=== PATIENT | female | born 1960 | race Hispanic/Latino ===

== ENCOUNTER 2017-10-02 15:43 | Emergency (ER) | payer MEDICAID ==
[2017-10-02 16:11] VITALS: RESP 18; BMI 25.5
[2017-10-02] MEDS ORDERED: Multivitamin (MVI) 10 ML, Thiamine 100 MG, Folic Acid 1 MG in Sodium Chloride 0.9% 1,00... IV ONE (16:23)
[2017-10-02 16:42] LABS: BASO # 0.02 K/mm3 (0.0-2.0); BASO % 0.4 % (0.0-3.0); EOS # 0.1 (0.0-0.7); EOS % 0.9 % (1.5-5.0); GRAN # 2.09 (1.4-6.5); HEMATOCRIT 44.9 % (36.0-48.0); MEAN CELL VOLUME 98.7 fl (80.0-105.0); MEAN CORPUSCULAR HEMOGLOBIN 34.9 pg (25.0-35.0); MEAN CORPUSCULAR HGB CONC 35.4 g/dl (31.0-37.0); MEAN PLATELET VOLUME 10.1 fl (7.0-11.0); MONO # 0.5 (0.1-0.6); MONO % 8.7 % (1.0-6.0); RED CELL DISTRIBUTION WIDTH 12.9 % (11.5-14.5); WHITE BLOOD COUNT 5.6 10^3/ul (4.5-11.0)
--- NOTE | 2017-10-02 16:43 | ED PDOC ---
Arrival/HPI - General Chief Complaint: Psychiatric Evaluation Time Seen by Provider: 10/02/17 16:23 Historian: Patient, EMS - History of Present Illness Narrative History of Present Illness (Text): 10/02/17 16:31 Per patient/EMS, pt has been feeling very depressed over the last few weeks and has been nearly drinking on a daily basis, ~ 1 pint of vodka; pt last drink was prior to ED arrival; pt states someone called the EMS on her and they brought her to the ED for further eval; pt had made statements to her friends/EMS crew in regards to wanting to harm herself, but without concrete plans; pt states she has no homicidal ideations, no hallucinations - visual/tactile/auditory; pt states no medical complaints; pt states she is "heart broken" and has been attempting to contact the hotline at [facility] for assistance but no one has responded back to her; pt is extremely sad about that; pt states no fever/chills/sweats/cp/sob/palpitations, no abd pain, no n/v, no numbness/ tingling, no urinary/bowel changes, no fall/trauma/sick contact, no travel Per pt's cousin (Luisana) whos at bedside currently, verify pt's statements that she wants to hurt herself by possibly OD on pills; pt was making these statements since yesterday 10/02/17 16:48 Time/Duration: < week Symptom Onset: Gradual Symptom Course: Worsening Severity Level: Severe Past Medical History - Provider Review Nursing Documentation Reviewed: Yes - Travel History Have you recently traveled outside [place] w/in the past 3 mons?: No - Infectious Disease Hx of Infectious Diseases: None - Tetanus Immunization Tetanus Immunization: Unknown - Cardiac Hx Cardiac Disorders: No Hx Hypertension: Yes - Pulmonary Hx Respiratory Disorders: No - Neurological Hx Neurological Disorder: No - HEENT Hx HEENT Disorder: No - Renal Hx Renal Disorder: No Hx Kidney Stones: No - Endocrine/Metabolic Hx Diabetes Mellitus Type 2: Yes - Hematological/Oncological Hx Blood Disorders: No - Integumentary Hx Dermatological Disorder: No - Musculoskeletal/Rheumatological Hx Musculoskeletal Disorders: No - Gastrointestinal Hx Gastrointestinal Disorders: No - Psychiatric Hx Anxiety: Yes Hx Depression: Yes Hx Physical Abuse: No Hx Substance Use: Yes (alcohol abuse) - Surgical History Hx Tubal Ligation: Yes - Anesthesia Hx Anesthesia: No Hx Anesthesia Reactions: No Hx Malignant Hyperthermia: No - Suicidal Assessment Suicidal Thoughts: Yes Plan: No Suicide Risk Precautions: Suicide Precautions Feels Threatened In Home Enviroment: No Family/Social History - Physician Review Nursing Documentation Reviewed: Yes Family/Social History: Unknown Family HX Smoking Status: Never Smoked Hx Alcohol Use: Yes Frequency of alcohol use: Daily Hx Substance Use: No Hx Substance Use Treatment: No Allergies/Home Meds Allergies/Adverse Reactions: Allergies No Known Allergies Allergy (Verified 04/02/13 17:45) Home Medications: Home Meds Medication Instructions Recorded Confirmed Venlafaxine [Effexor XR] 75 mg PO DAILY 10/02/17 10/02/17 clonazePAM [clonAZEPAM] 0.5 mg PO DAILY 10/02/17 10/02/17 Review of Systems - Review of Systems Constitutional: absent: Weight Change, Fevers Eyes: Normal ENT: Normal Respiratory: Normal Cardiovascular: Normal Gastrointestinal: Normal Genitourinary Female: Normal Musculoskeletal: Normal Skin: Normal Neurological: Normal Endocrine: Normal Hemo/Lymphatic: Normal Psychiatric: Anxiety, Depression, Suicidal Ideation Physical Exam Vital Signs Reviewed: Yes Vital Signs Pulse Resp BP Pulse Ox 10/02/17 17:44 89 18 137/70 98 10/02/17 15:57 82 18 127/91 H 99 Temperature: Afebrile Blood Pressure: Other (elevated DBP) Pulse: Regular Respiratory Rate: Normal Appearance: Positive for: Well-Appearing, Non-Toxic, Other (+ etoh on breath, alert/awake, slurr speech (likely due to intoxication); GCS = 15, oriented x 2 ( not to date/time); resting in bed, intermittently crying) Pain Distress: None Mental Status: Positive for: other (intermittently crying/in tears) - Systems Exam Head: Present: Atraumatic, Normocephalic Pupils: Present: PERRL, Other (visual field intact b/l, no nystagmus, no photophobia) Extroacular Muscles: Present: EOMI Conjunctiva: Present: Normal Mouth: Present: Dry, Other (intact dentitions, no drooling/stridor, no dysphonia ) Pharnyx: Present: Normal. No: ERYTHEMA, EXUDATE, Muffled/Hoarse Voice Nose (External): Present: Atraumatic Neck: Present: Normal Range of Motion, Trachea Midline. No: MIDLINE TENDERNESS Respiratory/Chest: Present: Clear to Auscultation, Good Air Exchange. No: Respiratory Distress, Accessory Muscle Use Cardiovascular: Present: Regular Rate and Rhythm, Normal S1, S2. No: Murmurs Abdomen: Present: Normal Bowel Sounds, Other (well nourished female, no focal tenderness, no masses/rebound/guarding/rigidity; no irvin's sign, no mcburnye' s point tenderness). No: Tenderness, Distention, Peritoneal Signs Back: Present: Normal Inspection, Midline Tenderness Upper Extremity: Present: Normal Inspection, Normal ROM, NORMAL PULSES, Neurovascularly Intact, Capillary Refill < 2s, Other (strength 5/5 grossly intact in all limbs). No: Cyanosis, Edema Lower Extremity: Present: Normal Inspection, NORMAL PULSES, Normal ROM, Neurovascularly Intact, Capillary Refill < 2 s, Other (+ ambulatory, strength 5/ 5 grossly intact in all limbs). No: Edema, Vidya's Sign Neurological: Present: GCS=15, CN II-XII Intact, Normal Sensory Function Skin: Present: Warm, Dry, Normal Color, Other (no lesions/ulcerations noted). No: Rashes Psychiatric: Present: Alert, Depressed Mood (balbuena; intermittently crying) Medical Decision Making ED Course and Treatment: 10/02/17 17:01 impression: alcohol intoxication/abuse, + depression/suicidal thoughts/ statements, concern for DT/dehydration/other toxic ingestions; will continue to monitor i have consider all the differential diagnosis regarding pt's chief medical complaints/clinical findings, including but are not limited to: SI/depression, alcohol abuse, r/o DT; possible dehydration; infection a/p: alcohol intoxication/depression/SI - labs - iv - xray - ekg - ua - utox - observe - supportive care 10/02/17 18:01 pt's cousin is at bedside (Luisana); pt is currently cooperative and is agreeable with staying in the ED for further eval given pt's elevated ETOH level, likely will not be sober until ~ 11pm-12am later tonight; pt will be awaiting for soberity and medical re-evaluation for psych eval/PES evaluation after pt is deemed sober pt's family are made aware of pt's lab diagnostics pt is awaiting soberity/medical clearance/psych evaluation/assessment; pt can be disposition accordingly Reassessment Condition: Improving,but remains with symptoms - Lab Interpretations Lab Results: 10/02/17 16:05 10/02/17 16:05 Lab Results 10/02/17 16:05: Alcohol, Quantitative 315 H* 10/02/17 16:05: Salicylates < 1 L, Acetaminophen < 10.0 L 10/02/17 16:05: Sodium 147, Potassium 3.1 L, Chloride 102, Carbon Dioxide 26, Anion Gap 22 H, BUN 6 L, Creatinine 0.5 L, Est GFR ( Amer) > 60, Est GFR (Non-Af Amer) > 60, Random Glucose 119 H, Calcium 9.5, Total Bilirubin 0.3, AST 99 H, ALT 107 H, Alkaline Phosphatase 139 H, Total Protein 7.4, Albumin 4.7, Globulin 2.7, Albumin/Globulin Ratio 1.7 10/02/17 16:05: WBC 5.6, RBC 4.55, Hgb 15.9, Hct 44.9, MCV 98.7, MCH 34.9, MCHC 35.4, RDW 12.9, Plt Count 191, MPV 10.1, Gran % 37.0 L, Lymph % (Auto) 53.0 H, [place] % (Auto) 8.7 H, Eos % (Auto) 0.9 L, Baso % (Auto) 0.4, Gran # 2.09, Lymph # 3.0, [place] # 0.5, Eos # 0.1, Baso # 0.02 elevated ETOH, decr K I have reviewed the lab results: Yes Interpretation: Abnormal lab values (decr K, elevated ETOH; mildly elevated LFTs ) - RAD Interpretation Radiology Orders: 10/02/17 16:24 CHEST PORTABLE [RAD] Stat NAD, as read by me Dental Technologist: ED Physician - EKG Interpretation EKG Interpretation (Text): 10/02/17 17:15 NSR at 80 bpm, normal axis, no ectopy, no st-t changes, BORDERLINE EKG; no old ekg to compare with 10/02/17 17:16 Interpreted by ED Physician: Yes Type: 12 lead EKG Comparison: No previous EKG avail. - Medication Orders Current Medication Orders: Multivitamins/Vitamin C 10 ml/Thiamine HCl 100 mg/ Folic Acid 1 mg/ Sodium Chloride 1,011.2 mls @ 100 mls/hr IV ONCE ONE Stop: 10/03/17 02:29 Last Admin: 10/02/17 17:00 Dose: 100 mls/hr eMAR Start Stop Document 10/02/17 17:00 MS (Rec: 10/02/17 17:03 MS [id number]) Intravenous Solution Start Date 10/02/17 Start Time 17:03 Discontinued Medications Chlordiazepoxide (Librium) 25 mg PO STAT STA Stop: 10/02/17 16:45 Last Admin: 10/02/17 16:56 Dose: 25 mg Lorazepam (Ativan) 2 mg IVP ONCE ONE PRN Reason: Protocol Stop: 10/02/17 17:40 Last Admin: 10/02/17 17:44 Dose: 2 mg IVP Administration Document 10/02/17 17:44 EWO (Rec: 10/02/17 17:44 [id number]) Charges for Administration # of IVP Administrations 1 Oxycodone/Acetaminophen (Percocet 5/325 Mg Tab) 1 tab PO STAT STA Stop: 10/02/17 17:39 Last Admin: 10/02/17 17:43 Dose: 1 tab MAR Pain Assessment Document 10/02/17 17:43 EWO (Rec: 10/02/17 17:44 [id number]) Pain Reassessment Is this a pain reassessment? Yes Sleep Is patient sleeping during reassessment? No Presence of Pain Presence of Pain Yes Pain Scale Used Pain Scale Used Numeric Potassium Chloride (K-Dur 20 Meq Er Tab) 20 meq PO STAT STA Stop: 10/02/17 17:18 Last Admin: 10/02/17 17:37 Dose: 20 meq Disposition/Present on Arrival - Present on Arrival Any Indicators Present on Arrival: No History of DVT/PE: No History of Uncontrolled Diabetes: No Urinary Catheter: No History of Decub. Ulcer: No History Surgical Site Infection Following: None - Disposition Have Diagnosis and Disposition been Completed?: Yes Diagnosis: Alcohol intoxication, Alcohol dependence, Depression with suicidal ideation, Dehydration, Hypokalemia Disposition Time: 19:03 Patient Plan: Transfer To (DR SANTACRUZ, overnight attending, pt is awaiting soberity, medical re-eval, psych evaluation; pt can be dispositioned accordingly ) Patient Problems: Current Active Problems Problem Status Onset Alcohol intoxication Acute Alcohol dependence Acute Depression with suicidal ideation Acute Dehydration Acute Hypokalemia Acute Condition: STABLE Referrals: Tammy Whitehead DO [Primary Care Provider] - Follow up with primary Forms: [employer] (Arabic)
[2017-10-02 17:00] LABS: ALB/GLOB RATIO 1.7 (1.1-1.8); ALKALINE PHOSPHATASE 139 U/L (38-126); ALT/SGPT 107 U/L (7-56); AST/SGOT 99 U/L (14-36); BILIRUBIN,TOTAL 0.3 mg/dL (0.2-1.3); BLOOD UREA NITROGEN 6 mg/dL (7-21); CALCIUM 9.5 mg/dL (8.4-10.5); CARBON DIOXIDE 26 mmol/L (21-33); CHLORIDE 102 mmol/L (98-107); GFR AFRICAN-AMERICAN > 60; GLUCOSE,RANDOM 119 mg/dL (70-110); POTASSIUM 3.1 mmol/L (3.6-5.0); SODIUM 147 mmol/L (132-148); TOTAL PROTEIN 7.4 g/dL (5.8-8.3)
[2017-10-02] MEDS ORDERED: Potassium Chloride 20 mEq ER Tab PO STA (17:17)
[2017-10-02] MEDS ORDERED: Oxycodone/Acetaminophen 5/325 mg Tab PO STA (17:38)
--- NOTE | 2017-10-02 18:09 | RAD ---
HISTORY: for psych clearance COMPARISON: 09/11/2015. FINDINGS: LUNGS: No active pulmonary disease. PLEURA: No significant pleural effusion identified, no pneumothorax apparent. CARDIOVASCULAR: No radiographic findings to suggest acute or significant cardiovascular disease. OSSEOUS STRUCTURES: No significant abnormalities. VISUALIZED UPPER ABDOMEN: Normal. OTHER FINDINGS: None. IMPRESSION: No active disease. No significant interval change compared to the prior examination(s).
[2017-10-02 18:43] VITALS: BP 137/70; O2SAT 98
--- NOTE | 2017-10-02 21:25 | ED PDOC ---
Physical Exam Vital Signs Reviewed: Yes Vital Signs Pulse Resp BP Pulse Ox 10/02/17 21:43 88 18 98 10/02/17 17:44 89 18 137/70 98 10/02/17 15:57 82 18 127/91 H 99 Temperature: Afebrile Blood Pressure: Hypertensive Pulse: Regular Respiratory Rate: Normal Appearance: Positive for: Well-Appearing, Non-Toxic, Comfortable Pain Distress: None Mental Status: Positive for: Alert and Oriented X 3 Medical Decision Making ED Course and Treatment: 10/02/17 19:00: Patient endorsed to me by Dr. Mabry. Pending PES evaluation. 10/02/17 21:23: Patient was evaluated by PES worker. Patient is cleared for discharge. 10/02/17 21:42: Patient is awake, alert, and oriented x3. The patient has been observed for 6 hours. Patient has steady gait and is requesting to be discharged. - Lab Interpretations Lab Results: 10/02/17 16:05 10/02/17 16:05 Lab Results 10/02/17 16:05: Alcohol, Quantitative 315 H* 10/02/17 16:05: Salicylates < 1 L, Acetaminophen < 10.0 L 10/02/17 16:05: Sodium 147, Potassium 3.1 L, Chloride 102, Carbon Dioxide 26, Anion Gap 22 H, BUN 6 L, Creatinine 0.5 L, Est GFR ( Amer) > 60, Est GFR (Non-Af Amer) > 60, Random Glucose 119 H, Calcium 9.5, Total Bilirubin 0.3, AST 99 H, ALT 107 H, Alkaline Phosphatase 139 H, Total Protein 7.4, Albumin 4.7, Globulin 2.7, Albumin/Globulin Ratio 1.7 10/02/17 16:05: WBC 5.6, RBC 4.55, Hgb 15.9, Hct 44.9, MCV 98.7, MCH 34.9, MCHC 35.4, RDW 12.9, Plt Count 191, MPV 10.1, Gran % 37.0 L, Lymph % (Auto) 53.0 H, [place] % (Auto) 8.7 H, Eos % (Auto) 0.9 L, Baso % (Auto) 0.4, Gran # 2.09, Lymph # 3.0, [place] # 0.5, Eos # 0.1, Baso # 0.02 - RAD Interpretation Radiology Orders: 10/02/17 16:24 CHEST PORTABLE [RAD] Stat - Medication Orders Current Medication Orders: Discontinued Medications Chlordiazepoxide (Librium) 25 mg PO STAT STA Stop: 10/02/17 16:45 Last Admin: 10/02/17 16:56 Dose: 25 mg Multivitamins/Vitamin C 10 ml/Thiamine HCl 100 mg/ Folic Acid 1 mg/ Sodium Chloride 1,011.2 mls @ 100 mls/hr IV ONCE ONE Stop: 10/03/17 02:29 Last Admin: 10/02/17 17:00 Dose: 100 mls/hr eMAR Start Stop Document 10/02/17 17:00 MS (Rec: 10/02/17 17:03 MS [id number]) Intravenous Solution Start Date 10/02/17 Start Time 17:03 Lorazepam (Ativan) 2 mg IVP ONCE ONE PRN Reason: Protocol Stop: 10/02/17 17:40 Last Admin: 10/02/17 17:44 Dose: 2 mg IVP Administration Document 10/02/17 17:44 EWO (Rec: 10/02/17 17:44 [id number] Charges for Administration # of IVP Administrations 1 Oxycodone/Acetaminophen (Percocet 5/325 Mg Tab) 1 tab PO STAT STA Stop: 10/02/17 17:39 Last Admin: 10/02/17 17:43 Dose: 1 tab MAR Pain Assessment Document 10/02/17 17:43 EWO (Rec: 10/02/17 17:44 E[id number]) Pain Reassessment Is this a pain reassessment? Yes Sleep Is patient sleeping during reassessment? No Presence of Pain Presence of Pain Yes Pain Scale Used Pain Scale Used Numeric Potassium Chloride (K-Dur 20 Meq Er Tab) 20 meq PO STAT STA Stop: 10/02/17 17:18 Last Admin: 10/02/17 17:37 Dose: 20 meq - Scribe Statement The provider has reviewed the documentation as recorded by the Scribe Nandini Jeffers Provider Scribe Attestation: All medical record entries made by the Scribe were at my direction and personally dictated by me. I have reviewed the chart and agree that the record accurately reflects my personal performance of the history, physical exam, medical decision making, and the department course for this patient. I have also personally directed, reviewed, and agree with the discharge instructions and disposition. Disposition/Present on Arrival - Present on Arrival Any Indicators Present on Arrival: No History of DVT/PE: No History of Uncontrolled Diabetes: No Urinary Catheter: No History of Decub. Ulcer: No History Surgical Site Infection Following: None - Disposition Have Diagnosis and Disposition been Completed?: Yes Diagnosis: Alcohol intoxication, Alcohol dependence, Depression with suicidal ideation, Dehydration, Hypokalemia Disposition: HOME/ ROUTINE Disposition Time: 12:00 Condition: STABLE Discharge Instructions (ExitCare): Depression (DC), Alcohol Intoxication (ED) Additional Instructions: please follow up as insttructed by general warehouse worker. return to er with worsening symptoms or concerns. Referrals: Alcoholics Anonymous [Outside] - Follow up with primary Litigation Services Manager Service [Outside] - Follow up with primary [facility] [Outside] - Follow up with primary Tammy Whitehead DO [Primary Care Provider] - Follow up with primary Forms: [employer] (Bangladeshi)
[2017-10-02 21:53] VITALS: PULSE 88
--- NOTE | 2017-10-03 09:56 | CARD ---
APPROVED REPORT EKG Measurement Heart [id number] <Conclusion> Normal sinus rhythm Rightward axis Mild NSSTW changes and mildly prolonged QTc.
== END 2017-10-02 21:48 | disposition home or self-care (01) ==
LOC: ED 15:43
DX: F10.229 Alcohol dependence with intoxication, unspecified (principal); Y90.8 Blood alcohol level of 240 mg/100 ml or more; F32.9 Major depressive disorder, single episode, unspecified; R45.851 Suicidal ideations; E87.6 Hypokalemia; E86.0 Dehydration; E11.9 Type 2 diabetes mellitus without complications; I10 Essential (primary) hypertension
CPT/HCPCS: 71010; 80053; 80320; 80329; 85025; 93005; 96374; 99285; J2060; J3411; J7040

== ENCOUNTER 2018-04-07 19:28 | Emergency (ER) | payer MEDICAID ==
[2018-04-07 19:39] VITALS: BMI 25.7
--- NOTE | 2018-04-07 19:39 | ED PDOC ---
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 Patient stated as she was crossing the street, she slipped and fell down. Denies knee pain, denies hip pain, denies back pain. Denies head injury, LOC, weakness, paresthesias, syncope, or dizziness. Time/Duration: Other (see hpi) Context: Home Past Medical History - Provider Review Nursing Documentation Reviewed: Yes - Infectious Disease Hx of Infectious Diseases: None - Tetanus Immunization Tetanus Immunization: Unknown - Cardiac Hx Cardiac Disorders: No Hx Hypertension: Yes - Pulmonary Hx Tuberculosis: No - Neurological HX Cerebrovascular Accident: No Hx Seizures: No - HEENT Hx HEENT Disorder: No - Renal Hx Renal Disorder: No Hx Kidney Stones: No - Endocrine/Metabolic Hx Diabetes Mellitus Type 2: Yes - Hematological/Oncological Hx Cancer: No - Integumentary Hx Dermatological Disorder: No - Musculoskeletal/Rheumatological Hx Musculoskeletal Disorders: No - Gastrointestinal Hx Gastrointestinal Disorders: No - Genitourinary/Gynecological Hx Sexually Transmitted Diseases: No - Psychiatric Hx Depression: No Hx Substance Use: No - Surgical History Hx Tubal Ligation: Yes - Anesthesia Hx Anesthesia: No Hx Anesthesia Reactions: No Hx Malignant Hyperthermia: No - Suicidal Assessment Feels Threatened In Home Enviroment: No Family/Social History - Physician Review Nursing Documentation Reviewed: Yes Family/Social History: Other (noncontributory) Smoking Status: Never Smoked Hx Alcohol Use: Yes Hx Substance Use: No Hx Substance Use Treatment: No Allergies/Home Meds Allergies/Adverse Reactions: Allergies No Known Allergies Allergy (Verified 04/07/18 19:37) Home Medications: Home Meds Medication Instructions Recorded Confirmed clonazePAM [clonAZEPAM] 0.5 mg PO BID 10/02/17 04/07/18 Gabapentin [Neurontin] 300 mg PO TID 04/07/18 04/07/18 Lisinopril [Zestril] 40 mg PO DAILY 04/07/18 04/07/18 Review of Systems - Review of Systems Constitutional: Normal. absent: Fatigue, Weight Change, Fevers Eyes: Normal ENT: Normal Respiratory: Normal. absent: SOB, Cough, Sputum, Wheezing Cardiovascular: Normal. absent: Chest Pain, Palpitations Gastrointestinal: Normal. absent: Abdominal Pain, Nausea, Vomiting Genitourinary Female: Normal Musculoskeletal: Other (right foot/ankle pain) Skin: Normal Neurological: Normal. absent: Headache, Dizziness, Focal Weakness, Gait Changes , Speech Changes, Facial Droop, Disequilibrium Endocrine: Normal Hemo/Lymphatic: Normal Psychiatric: Normal Physical Exam Vital Signs Temp Pulse Resp BP Pulse Ox 04/07/18 19:39 98.7 F 89 17 161/96 H 100 Temperature: Afebrile Blood Pressure: Normal Pulse: Regular Respiratory Rate: Normal Appearance: Positive for: Well-Appearing, Non-Toxic, Comfortable Pain Distress: None Mental Status: Positive for: Alert and Oriented X 3 - Systems Exam Head: Present: Atraumatic, Normocephalic Pupils: Present: PERRL Extroacular Muscles: Present: EOMI Conjunctiva: Present: Normal Mouth: Present: Moist Mucous Membranes Neck: Present: Normal Range of Motion Respiratory/Chest: Present: Clear to Auscultation, Good Air Exchange. No: Respiratory Distress, Accessory Muscle Use Cardiovascular: Present: Regular Rate and Rhythm, Normal S1, S2. No: Murmurs Abdomen: No: Tenderness, Distention, Peritoneal Signs Back: Present: Normal Inspection Upper Extremity: Present: Normal Inspection, Normal ROM, NORMAL PULSES, Neurovascularly Intact. No: Cyanosis, Edema Lower Extremity: Present: NORMAL PULSES, Tenderness, Swelling, Neurovascularly Intact, Capillary Refill < 2 s, Other ((+) small superficial abrasion dorsal aspect of right foot. Mild ecchymosis, and tenderness over dorsal aspect of lateral foot. Newell test was negative. No posterior ankle or calf tenderness.). No: Edema, CALF TENDERNESS, Erythema, Deformity, Temperature Abnormalties Neurological: Present: GCS=15, CN II-XII Intact, Speech Normal Skin: Present: Warm, Dry, Normal Color. No: Rashes Psychiatric: Present: Alert, Oriented x 3, Normal Insight, Normal Concentration Medical Decision Making ED Course and Treatment: 04/07/18 21:19 Re-evaluation. Patient feels better. Discussed results and plan with patient who expresses understanding. All questions answered and there is agreement with the plan to discharge home with instructions. Patient stable for discharge. Return if symptoms persist or worsen. Patient was recommended RICE, and to be revaluated by PMD in 1-2 days. To remove adelfo bandage at bedtime. Re-evaluation Time: 21:20 Reassessment Condition: Re-examined, Improved - RAD Interpretation Radiology Orders: 04/07/18 19:51 ANKLE RIGHT 3 VIEWS ROUTINE [RAD] Stat FOOT RIGHT 3 VIEWS ROUTINE [RAD] Stat - Medication Orders Current Medication Orders: Discontinued Medications Ibuprofen (Motrin Tab) 600 mg PO STAT STA Stop: 04/07/18 19:58 Last Admin: 04/07/18 20:16 Dose: 600 mg MAR Pain/Vitals Document 04/07/18 20:16 RD (Rec: 04/07/18 20:16 RD [place] [id number]) Pain Reassessment Is This A Pain ReAssessment? No Sleep Is patient sleeping during reassessment? No Presence of Pain Presence of Pain Yes Tetanus/Reduced Diphtheria/Acell Pertussis (Boostrix Vaccine Inj) 0.5 ml IM .ONCE ONE Stop: 04/07/18 19:53 Last Admin: 04/07/18 20:16 Dose: 0.5 ml MAR Immunization Data Document 04/07/18 20:16 RD (Rec: 04/07/18 20:16 [email or web address] [id number] Immunization Data Vaccine Information Sheet Given Yes Vaccine Information Sheet Given Date 04/07/18 Immunization Registry Document 04/07/18 20:16 RD (Rec: 04/07/18 20:16 [id number] Immunization Registry Consent Date 10/02/17 Disposition/Present on Arrival - Present on Arrival Any Indicators Present on Arrival: No History of DVT/PE: No History of Uncontrolled Diabetes: No Urinary Catheter: No History Surgical Site Infection Following: None - Disposition Have Diagnosis and Disposition been Completed?: Yes Diagnosis: Foot pain, Ankle pain, Abrasion Disposition: HOME/ ROUTINE Disposition Time: 21:21 Patient Plan: Discharge Condition: IMPROVED Discharge Instructions (ExitCare): Foot Sprain (DC) Additional Instructions: Call private doctor for follow up visit in 1-2 days. Take medication as instructed with food. Remove adelfo bandage at bedtime. Keep foot elevated, ice, rest, adelfo bandage, air cast for at least 5 days. Return to emergency if pain worsen. Clean abrasion with soap and water only. Do not use Peroxide or alcohol. Prescriptions: Famotidine [Pepcid] 40 mg PO DAILY #10 tablet Ibuprofen [Motrin] 600 mg PO Q8 PRN #20 tab PRN Reason: Pain, Severe (8-10) Referrals: Tammy Whitehead DO [Primary Care Provider] - Follow up with primary
[2018-04-07 19:42] VITALS: TEMP 98.7
[2018-04-07] MEDS ORDERED: TDAP Vaccine 0.5 mL Syr IM ONE (19:52)
[2018-04-07 21:59] VITALS: BP 130/70; PULSE 82; RESP 16; O2SAT 99
--- NOTE | 2018-04-08 09:59 | RAD ---
PROCEDURE: Right Ankle Radiographs. HISTORY: Pain status post fall COMPARISON: Correlation made with concurrent radiographs of the right foot FINDINGS: BONES: Normal. No fracture. . There may be a very tiny developing plantar surface enthesophyte. JOINTS: Normal. No osteoarthritis. Ankle mortise maintained. Talar dome intact SOFT TISSUES: Normal. OTHER FINDINGS: None. IMPRESSION: No evidence of acute displaced fracture nor dislocation. There may be a very tiny early developing plantar surface enthesophyte.
--- NOTE | 2018-04-08 10:01 | RAD ---
PROCEDURE: Right Foot Radiographs. HISTORY: pain s/p fall COMPARISON: None. FINDINGS: BONES: No evidence of acute displaced fracture nor dislocation. The osseous structures appear intact. There may be a very tiny developing plantar surface enthesophyte. 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 . There also appears to be hammertoe deformities of the 2nd and to a lesser degree 3rd and 4th digits. SOFT TISSUES: Normal. OTHER FINDINGS: None. IMPRESSION: No evidence of acute displaced fracture nor dislocation. 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
== END 2018-04-07 21:30 | disposition home or self-care (01) ==
LOC: ED 19:28
DX: S90.811A Abrasion, right foot, initial encounter (principal); W01.0XXA Fall on same level from slipping, tripping and stumbling without subsequent striking against object, initial encounter; Y93.01 Activity, walking, marching and hiking; Y92.410 Unspecified street and highway as the place of occurrence of the external cause; M25.571 Pain in right ankle and joints of right foot; Z23 Encounter for immunization

== ENCOUNTER 2018-05-26 15:04 | Emergency (ER) | payer MEDICAID ==
[2018-05-26 15:04] VITALS: BMI 25.7
[2018-05-26 15:36] VITALS: TEMP 98.4
[2018-05-26] MEDS ORDERED: Multivitamin (MVI) 10 ML, Thiamine 100 MG, Folic Acid 1 MG in Sodium Chloride 0.9% 1,00... IV ONE (15:42)
--- NOTE | 2018-05-26 15:45 | ED PDOC ---
Arrival/HPI - General Chief Complaint: Alcohol Ingestion Time Seen by Provider: 05/26/18 15:40 Historian: Patient - History of Present Illness Narrative History of Present Illness (Text): 05/26/18 15:44 This 57 yo female with pmh alcohol abuse, htn, and dm, presents to this ED for alcohol intoxication. Patient admits she has been drinking alcohol for few days. Patient stated last drink was yesterday. Patient stated she called ambulance since she felt dehydrated. Patient noted mild DOMINGO, and nausea. Patient denies other somatic complains. Time/Duration: Other (see hpi) Context: Home Past Medical History - Provider Review Nursing Documentation Reviewed: Yes - Infectious Disease Hx of Infectious Diseases: None - Tetanus Immunization Tetanus Immunization: Unknown - Reproductive Menopause: Yes - Cardiac Hx Cardiac Disorders: Yes Hx Hypertension: Yes - Pulmonary Hx Respiratory Disorders: No - Neurological Hx Neurological Disorder: No - HEENT Hx HEENT Disorder: No - Renal Hx Renal Disorder: No - Endocrine/Metabolic Hx Endocrine Disorders: Yes Hx Diabetes Mellitus Type 2: Yes - Hematological/Oncological Hx Blood Disorders: No - Integumentary Hx Dermatological Disorder: No - Musculoskeletal/Rheumatological Hx Musculoskeletal Disorders: No - Gastrointestinal Hx Gastrointestinal Disorders: No - Genitourinary/Gynecological Hx Genitourinary Disorders: No - Psychiatric Hx Psychophysiologic Disorder: Yes Hx Anxiety: Yes Hx Depression: Yes Hx Substance Use: No - Surgical History Hx Tubal Ligation: Yes - Anesthesia Hx Anesthesia: No Hx Anesthesia Reactions: No Hx Malignant Hyperthermia: No - Suicidal Assessment Feels Threatened In Home Enviroment: No Family/Social History - Physician Review Nursing Documentation Reviewed: Yes Family/Social History: Other (noncontributory) Smoking Status: Never Smoked Hx Alcohol Use: Yes Hx Substance Use: No Hx Substance Use Treatment: No Allergies/Home Meds Allergies/Adverse Reactions: Allergies No Known Allergies Allergy (Verified 05/26/18 15:29) Home Medications: Home Meds Medication Instructions Recorded Confirmed clonazePAM [clonAZEPAM] 0.5 mg PO BID 10/02/17 05/26/18 Lisinopril [Zestril] 40 mg PO DAILY 04/07/18 05/26/18 Review of Systems - Review of Systems Constitutional: Normal. absent: Fatigue, Weight Change, Fevers Eyes: Normal ENT: Normal Respiratory: Normal Cardiovascular: Normal Gastrointestinal: Nausea. absent: Abdominal Pain, Stool Changes, Vomiting Genitourinary Female: Normal Musculoskeletal: Normal Skin: Normal Neurological: Headache Endocrine: Normal Hemo/Lymphatic: Normal Psychiatric: Other (alcohol abuse). absent: Anxiety, Depression, Suicidal Ideation Physical Exam Vital Signs Temp Pulse Resp BP Pulse Ox 05/26/18 18:30 86 16 116/66 97 05/26/18 15:32 98.4 F 115 H 18 113/60 96 05/26/18 15:27 98.4 F 115 H 18 113/60 96 Temperature: Afebrile Blood Pressure: Normal Pulse: Regular Respiratory Rate: Normal Appearance: Positive for: Well-Appearing, Non-Toxic, Comfortable Pain Distress: None Mental Status: Positive for: Alert and Oriented X 3 - Systems Exam Head: Present: Normocephalic, Ecchymosis (right infraorbital ecchymosis. No scalp ecchymosis or hematoma.), Other (No raccoon sign. No muñoz sign). No: Tenderness, Contusion, Swelling, Abrasion, Laceration Pupils: Present: PERRL, Other (no hyphema) Extroacular Muscles: Present: EOMI. No: Entrapment Conjunctiva: Present: Normal Ears: Present: Normal, NORMAL TM, Normal Canal, Other (no hemotympanum). No: Erythema, TM Bulging, Fluid, TM Perf Mouth: Present: Moist Mucous Membranes Pharnyx: Present: Normal. No: ERYTHEMA, EXUDATE, TONSILS ENLARGED Nose (External): Present: Atraumatic Nose (Internal): Present: Normal Inspection. No: Septal Hematoma, Epistaxis Neck: Present: Normal Range of Motion. No: Meningeal Signs, MIDLINE TENDERNESS , Paraspinal Tenderness Respiratory/Chest: Present: Clear to Auscultation, Good Air Exchange. No: Respiratory Distress, Accessory Muscle Use, Wheezes, Retracting, Rhonchi Cardiovascular: Present: Regular Rate and Rhythm, Normal S1, S2. No: Murmurs Abdomen: No: Tenderness, Distention, Peritoneal Signs Back: Present: Normal Inspection. No: CVA Tenderness, Midline Tenderness, Paraspinal Tenderness, Pain with Leg Raise Upper Extremity: Present: Normal ROM, NORMAL PULSES, Neurovascularly Intact, Capillary Refill < 2s, Other (Mild left ecchymosis proximal arm, and left forearm. No bony tenderness. UE and LE have FROM. No joint tenderness). No: Cyanosis, Edema, Tenderness, Swelling, Erythema, Temperature Abnormalties, Deformity Lower Extremity: Present: Normal Inspection, NORMAL PULSES, Normal ROM, Neurovascularly Intact, Capillary Refill < 2 s. No: Edema Neurological: Present: GCS=15, CN II-XII Intact, Speech Normal, Motor Func Grossly Intact, Normal Sensory Function, Normal Cerebellar Funct, Gait Normal, Memory Normal Skin: Present: Warm, Dry, Normal Color. No: Rashes Psychiatric: Present: Alert, Oriented x 3, Normal Insight, Normal Concentration Medical Decision Making ED Course and Treatment: 05/26/18 20:36 Patient remained stable during the course of ED visit. Patient feels better. Vital signs are normal. Patient wishes to be discharge home. Patient has a normal gait, normal speech, no neuro focal deficits. Patient is AAO x 3. Patient was recommended to stop abusing alcohol, and she should seek DETOX Re-evaluation Time: 20:38 Reassessment Condition: Re-examined, Improved - RAD Interpretation Narrative RAD Interpretations (Text): 05/26/18 18:56 PROCEDURE: CT Cervical Spine without contrast IMPRESSION: No acute findings related to/accounting for the clinical presentation. Additional benign and/or incidental findings described above. Radiology Orders: 05/26/18 15:41 HEAD W/O CONTRAST [CT] Stat 05/26/18 15:42 CERVICAL SPINE W/O CONTRAST [CT] Stat 05/26/18 15:43 MAXILLOFACIAL W/O CONTRAST [CT] Stat - Medication Orders Current Medication Orders: Discontinued Medications Multivitamins/Vitamin C 10 ml/Thiamine HCl 100 mg/ Folic Acid 1 mg/ Sodium Chloride 1,011.2 mls @ 1,000 mls/hr IV .Q1H1M ONE Stop: 05/26/18 16:42 Last Admin: 05/26/18 16:42 Dose: 1,000 mls/hr eMAR Start Stop Document 05/26/18 16:42 ENID (Rec: 05/26/18 16:43 ENID [id number]) Intravenous Solution Start Date 05/26/18 Start Time 16:42 End Date 05/26/18 End time 17:42 Total Infusion Time 60 Lorazepam (Ativan) 1 mg IVP ONCE ONE PRN Reason: Protocol Stop: 05/26/18 15:43 Last Admin: 05/26/18 16:02 Dose: 1 mg IVP Administration Document 05/26/18 16:02 ENID (Rec: 05/26/18 16:02 ENID [id number]) Charges for Administration # of IVP Administrations 1 Ondansetron HCl (Zofran Inj) 4 mg IVP STAT STA Stop: 05/26/18 15:46 Last Admin: 05/26/18 16:02 Dose: 4 mg IVP Administration Document 05/26/18 16:02 ENID (Rec: 05/26/18 16:02 ENID [id number]) Charges for Administration # of IVP Administrations 1 Disposition/Present on Arrival - Present on Arrival Any Indicators Present on Arrival: No History of DVT/PE: No History of Uncontrolled Diabetes: Yes Urinary Catheter: No History of Decub. Ulcer: No History Surgical Site Infection Following: None - Disposition Have Diagnosis and Disposition been Completed?: Yes Diagnosis: Alcohol abuse Disposition Time: 20:42 Patient Plan: Discharge Patient Problems: Current Active Problems Problem Status Onset Alcohol abuse Acute Condition: IMPROVED Discharge Instructions (ExitCare): Alcohol Abuse and Alcoholism (DC) Additional Instructions: Call private doctor for follow up visit in 1-2 days. make sure to drink plenty of fluids and rest. return to emergency if symptoms worsen. Referrals: [facility] [Outside] - Follow up with primary Alcoholics Anonymous [Outside] - Follow up with primary Forms: [employer] ([place])
--- NOTE | 2018-05-26 17:25 | CT ---
Date of service: 05/26/2018 PROCEDURE: CT HEAD WITHOUT CONTRAST. HISTORY: DOMINGO s/p fall COMPARISON: None available. TECHNIQUE: Axial computed tomography images were obtained through the head/brain without intravenous contrast. Coronal and sagittal reconstructed images. Radiation dose: Total exam DLP = 804.54 mGy-cm. This CT exam was performed using one or more of the following dose reduction techniques: Automated exposure control, adjustment of the mA and/or kV according to patient size, and/or use of iterative reconstruction technique. FINDINGS: HEMORRHAGE: No intracranial hemorrhage. BRAIN: No mass effect or edema. No atrophy or chronic microvascular ischemic changes. VENTRICLES: Unremarkable. No hydrocephalus. CALVARIUM: Unremarkable. PARANASAL SINUSES: Unremarkable as visualized. No significant inflammatory changes. MASTOID AIR CELLS: Unremarkable as visualized. No inflammatory changes. OTHER FINDINGS: None. IMPRESSION: No acute intracranial abnormalities. No significant findings to account for the clinical presentation.
--- NOTE | 2018-05-26 17:27 | CT ---
Date of service: 05/26/2018 PROCEDURE: CT MAXILLOFACIAL BONES WITHOUT CONTRAST HISTORY: right orbital pain s/p fall COMPARISON: None available. TECHNIQUE: Contiguous axial CT images of the maxillofacial bones were obtained. Coronal and sagittal reformats were generated. Radiation dose: Total exam DLP = 773.93 mGy-cm. This CT exam was performed using one or more of the following dose reduction techniques: Automated exposure control, adjustment of the mA and/or kV according to patient size, and/or use of iterative reconstruction technique. FINDINGS: NASAL BONES: Unremarkable. ORBITS: Right periorbital soft tissue swelling. No globe, intraconal-retro Conal abnormalities detected. PARANASAL SINUSES/ MASTOIDS: Clear. MAXILLA: Unremarkable. MANDIBLE/ TEMPOROMANDIBULAR JOINTS: Unremarkable. SKULL BASE: Unremarkable. TEMPORAL BONES: Middle ears and mastoid grossly unremarkable. OTHER FINDINGS: None. IMPRESSION: Unilateral, right periorbital soft tissue swelling. No acute osseous/ facial abnormalities otherwise identified.
--- NOTE | 2018-05-26 17:29 | CT ---
Date of service: 05/26/2018 PROCEDURE: CT Cervical Spine without contrast HISTORY: DOMINGO s/p fall COMPARISON: None available. TECHNIQUE: Axial computed tomography images were obtained of the cervical spine without the use of intravenous contrast. Coronal and sagittal reformatted images were created and reviewed. Radiation dose: Total exam DLP = 546.97 mGy-cm. This CT exam was performed using one or more of the following dose reduction techniques: Automated exposure control, adjustment of the mA and/or kV according to patient size, and/or use of iterative reconstruction technique. FINDINGS: VERTEBRAE: No fracture. Normal alignment. No destructive bony lesion. C4 sclerotic changes of uncertain etiology, significance. DISCS/SPINAL CANAL/NEURAL FORAMINA: No significant central canal or neural foraminal stenosis. C4-5, C5-6 disc degenerative changes. PARASPINAL SOFT TISSUES: Unremarkable. OTHER FINDINGS: None. IMPRESSION: No acute findings related to/accounting for the clinical presentation. Additional benign and/or incidental findings described above.
[2018-05-26 18:30] VITALS: O2SAT 97
[2018-05-27 04:43] VITALS: BP 136/78; PULSE 88; RESP 17
== END 2018-05-26 21:02 | disposition home or self-care (01) ==
LOC: ED 15:04
DX: F10.10 Alcohol abuse, uncomplicated (principal); I10 Essential (primary) hypertension; E11.9 Type 2 diabetes mellitus without complications
CPT/HCPCS: 70450; 70486; 72125; 96365; 96375; 99283; J2060; J2405; J3411; J7030